=== PATIENT | male | born 1955 | race African-American/Black ===

== ENCOUNTER 2017-06-15 13:36 | Emergency (ER) | payer MEDICARE, BC ==
[2017-06-15 13:41] VITALS: BP 113/59
--- NOTE | 2017-06-15 14:31 | ER Document Report ---
ED Extremity Problem, Lower - General Chief Complaint: Knee Pain Stated Complaint: FALL KNEE PAIN Time Seen by Provider: 06/15/17 14:21 Notes: 62 yo male c/o left knee pain x 1 day. pt slipped on slick spot at gas station. fell onto left knee. TRAVEL OUTSIDE OF THE [place] IN LAST 30 DAYS: No - HPI Patient complains to provider of: Injury, Pain Location: Knee - left Occurred: Just prior to arrival Where: Public place - gas station Onset/Duration: Sudden Quality of pain: Sharp Pain Level: 4 Context: Fell Recent injury: Yes Associated symptoms: Painful ambulation. denies: Chest pain, Dizzy, Fainting, [place] a crack Exacerbated by: Walking Relieved by: Nothing - Related Data Allergies/Adverse Reactions: bacitracin [From Neosporin ([id number])] Allergy (Verified 06/15/17 13:40) neomycin [From Neosporin ([id number])] Allergy (Verified 06/15/17 13:40) polymyxin B [From Neosporin ([id number])] Allergy (Verified 06/15/17 13:40) surgical tape Allergy (Uncoded 06/15/17 13:40) Past Medical History - General Information source: Patient - Social History Smoking Status: Former Smoker Chew tobacco use (# tins/day): No Frequency of alcohol use: Occasional Drug Abuse: None Lives with: Family Family History: Reviewed & Not Pertinent - Medical History Medical History: Other - environamental allergies Renal/ Medical History: Denies: Hx Peritoneal Dialysis Past Surgical History: Reports: Hx Orthopedic Surgery - left knee replacement, achilles tendon Review of Systems - Review of Systems Constitutional: No symptoms reported EENT: No symptoms reported Cardiovascular: No symptoms reported Respiratory: No symptoms reported Gastrointestinal: No symptoms reported Genitourinary: No symptoms reported Male Genitourinary: No symptoms reported Musculoskeletal: See HPI Skin: No symptoms reported Hematologic/Lymphatic: No symptoms reported Neurological/Psychological: No symptoms reported Physical Exam - Vital signs Vitals: Temp Pulse Resp BP Pulse Ox 98.3 F 106 H 18 113/59 L 99 06/15/17 13:41 06/15/17 13:41 06/15/17 13:41 06/15/17 13:41 06/15/17 13:41 Interpretation: Normal - General General appearance: Appears well, Alert - HEENT Head: Normocephalic, Atraumatic Eyes: Normal Conjunctiva: Normal Pupils: PERRL Neck: Supple - mild suboccipital tenderness. no cervical tenderness - Respiratory Respiratory status: No respiratory distress Chest status: Nontender Breath sounds: Normal Chest palpation: Normal - Cardiovascular Rhythm: Regular Heart sounds: Normal auscultation Murmur: No - Abdominal Inspection: Normal Distension: No distension Bowel sounds: Normal Tenderness: Nontender Organomegaly: No organomegaly - Back Back: Normal, Nontender - Extremities General upper extremity: Normal inspection, Nontender, Normal color, Normal ROM , Normal temperature General lower extremity: Normal inspection, Nontender, Normal color, Normal ROM , Normal temperature, Normal weight bearing. No: Christopher's sign Knee: Tender - + abrasion and focal tenderness over left tibial tuberostiy. no effusion. no popliteal pain., Abrasion, Patellar tendon intact. No: Drawer's test instability, Laxity with valgus stress - no lateral compartment pain or instability, Popliteal fossa tender, Tender joint line - Neurological Neuro grossly intact: Yes Cognition: Normal Orientation: AAOx4 Carmen Coma Scale Eye Opening: Spontaneous [place] Coma Scale Verbal: Oriented [place] Coma Scale Motor: Obeys Commands [place] Coma Scale Total: 15 Speech: Normal Motor strength normal: LUE, RUE, LLE, RLE Sensory: Normal - Psychological Associated symptoms: Normal affect, Normal mood - Skin Skin Temperature: Warm Skin Moisture: Dry Skin Color: Normal Course - Re-evaluation Re-evalutation: 06/15/17 15:32 xrays are negative for fracture. results reviewed with patient. knee abrasion cleaned and dressed. gaurang wrap applied. pt is stable for discharge - Vital Signs Vital signs: Temp Pulse Resp BP Pulse Ox 98.3 F 106 H 18 113/59 L 99 06/15/17 13:41 06/15/17 13:41 06/15/17 13:41 06/15/17 13:41 06/15/17 13:41 Procedures - Immobilization left knee Pre-Proc Neuro Vasc Exam: Normal Immobilizer type: Gaurang wrap Performed by: PCT Post-Proc Neuro Vasc Exam: Normal Alignment checked and good: Yes Discharge - Discharge Clinical Impression: Abrasion, left knee, initial encounter, Muscle strain Contusion of left knee Qualifiers: Encounter type: initial encounter Qualified Code(s): S80.02XA - Contusion of left knee, initial encounter Sprain of left foot Qualifiers: Encounter type: initial encounter Qualified Code(s): S93.602A - Unspecified sprain of left foot, initial encounter Condition: Stable Disposition: HOME, SELF-CARE Instructions: Abrasions ([facility]), Gaurang Wrap ([facility]), Antibiotic Ointment Protection ( [facility]), Contusion ([facility]), Ibuprofen (General) ([facility]), Ice & Elevation ([facility]), Muscle Relaxers ([facility]), Muscle Strain ([facility]), Oral Narcotic Medication ([facility]) Additional Instructions: Your xrays are negative for fracture clean abrasion with soap and water apply antibiotic ointment to abrasion gaurang wrap for comfort and support ice and elevate for comfort muscle relaxant for sore muscles follow up with primary care as needed Prescriptions: Ibuprofen [Motrin 800 Mg Tablet] 800 mg PO Q6H #20 tablet Methocarbamol [Robaxin 500 Mg Tablet] 1,000 mg PO Q6 #30 tablet Oxycodone HCl/Acetaminophen [Percocet 5-325 mg Tablet] 1 tab PO ASDIR PRN #15 tablet PRN Reason:
--- NOTE | 2017-06-15 15:46 | RADIOLOGY REPORT (SQ) ---
EXAM DESCRIPTION: KNEE LEFT 4 VIEW COMPLETED DATE/TIME: 06/15/2017 3:26 pm REASON FOR STUDY: fell on knee COMPARISON: None. NUMBER OF VIEWS: Four views left knee. LIMITATIONS: None. FINDINGS: Normal bone density. Minimal degenerative patellar spurring. No joint effusion. Vascula r calcification regionally. OTHER: No other significant finding. IMPRESSION: No acute radiographic findings. TECHNICAL DOCUMENTATION: JOB ID: [id number]
--- NOTE | 2017-06-15 15:49 | RADIOLOGY REPORT (SQ) ---
EXAM DESCRIPTION: FOOT LEFT COMPLETE COMPLETED DATE/TIME: 06/15/2017 3:26 pm REASON FOR STUDY: fell COMPARISON: None. NUMBER OF VIEWS: Three views left foot. LIMITATIONS: None. FINDINGS: Normal bone density. Mild great toe MP joint arthropathy with slight bunion and hallux va lgus. No fracture, subluxation or dislocation evident. Degenerative findings suggested in the ankle , incompletely assessed. No ankle effusion. Mild Achilles calcification. OTHER: No other significant finding. IMPRESSION: No acute abnormality detected. TECHNICAL DOCUMENTATION: JOB ID: [id number]
== END 2017-06-15 16:04 | disposition home or self-care (01) ==
LOC: ER 13:36
DX: S80.02XA Contusion of left knee, initial encounter (principal); S93.602A Unspecified sprain of left foot, initial encounter; M25.562 Pain in left knee; W01.0XXA Fall on same level from slipping, tripping and stumbling without subsequent striking against object, initial encounter; Y92.524 Gas station as the place of occurrence of the external cause; Z88.8 Allergy status to other drugs, medicaments and biological substances; Z88.3 Allergy status to other anti-infective agents; Z87.891 Personal history of nicotine dependence
CPT/HCPCS: 99283